=== PATIENT | female | born 1995 | race Caucasian/White ===

== ENCOUNTER 2022-07-13 18:02 | Emergency (ER) | payer MEDICAID ==
[~2022-07-13] VITALS: Ht 152.4 cm; Wt 63.5 kg
[2022-07-13 18:10] VITALS: BP 118/79
--- NOTE | 2022-07-13 19:21 | NUR ---
PATIENT LEFT WITHOUT BEING SEEN BY NASEEM DANIEL. NO FURTHER CARE PROVIDED FOR PATIENT.
== END 2022-07-13 19:21 | disposition left against medical advice (07) ==
LOC: MED 18:02
DX: J02.9 Acute pharyngitis, unspecified (principal); Z53.21 Procedure and treatment not carried out due to patient leaving prior to being seen by health care provider